=== PATIENT | male | born 1955 | race Caucasian/White ===

== ENCOUNTER 2020-07-11 11:10 | Outpatient (CLI) | payer BC, SELFPAY ==
--- NOTE | 2020-07-11 08:15 | DI.RAD_ITS ---
EXAM: XR FOOT RT COMPLETE CLINICAL HISTORY: rt foot pain TECHNIQUE: COMPARISON: No exams were available for comparison FINDINGS: Three views were obtained. Bones appear normally mineralized. Mild hallux valgus deformity noted wi th slight secondary degenerative changes at 1st MTP joint. Otherwise alignment appears within normal limits. Minimal enthesophyte formation of the plantar fascia attachment on the calcaneus. No other significant bony abnormality seen. IMPRESSION: RADIATION DOSE DELIVERED: Total DLP
--- NOTE | 2020-07-11 08:15 | DI.RAD_ITS ---
EXAM: XR HAND RT COMPLETE CLINICAL HISTORY: rt hand pain TECHNIQUE: COMPARISON: No exams were available for comparison FINDINGS: Three views were obtained. Bones appear normally mineralized. Cartilaginous joint spaces are fairly well maintained. Small marginal osteophyte noted at the base of the distal phalanx of the thumb. No other significant bony abnormality seen. IMPRESSION: Examination is essentially normal for age. RADIATION DOSE DELIVERED: Total DLP
== END 2020-07-11 11:30 ==
PROVIDERS: Visit Provider Physician Assistant Surgical
DX: M79.641 Pain in right hand (principal); M79.671 Pain in right foot
CPT/HCPCS: 73130; 73630

== ENCOUNTER 2022-08-22 16:10 | Outpatient (REF) | payer BC, MEDICARE, SELFPAY ==
[2022-08-22 20:43] LABS: ALT 36 U/L (16-63); AST 27 U/L (15-37); Albumin 3.9 g/dL (3.4-5.0); Alkaline Phosphatase 71 U/L (46-116); Anion Gap 5.1 mmol/L (3-11); BUN 19 mg/dL (7-18); Bilirubin, Total 0.6 mg/dL (0.2-1.0); CO2 28.9 mmol/L (21.0-32.0); CREATININE 1.1 mg/dL (0.70-1.30); Calcium 8.9 mg/dL (8.5-10.1); Calculated LDL 158 mg/dL (<100); Chloride 105 mmol/L (98-107); Cholesterol 244 mg/dL (<200); Estimated GFR 74.04 (mL/min/1.73m2); Glucose 85 mg/dL (74-106); HDL Cholesterol 70 mg/dL (40-60); Potassium 4.2 mmol/L (3.5-5.1); Sodium 139 mmol/L (136-145); Total Protein 6.9 g/dL (6.4-8.2); Triglyceride 81 mg/dL (<150)
[2022-08-23 19:11] LABS: PSA, Screening 1.2 ng/mL (<=4.5)
== END 2022-08-22 16:11 | disposition home or self-care (01) ==
LOC: NCHCN 16:10
PROVIDERS: Visit Provider Physician Assistant
DX: E78.5 Hyperlipidemia, unspecified (principal); Z12.5 Encounter for screening for malignant neoplasm of prostate
CPT/HCPCS: 80053; 80061; 84153

== ENCOUNTER → 2022-09-07 00:51 | Outpatient (CLI) | payer BC, MEDICARE, SELFPAY ==
--- NOTE | 2022-09-07 | DI.RAD_ITS ---
Exam(s) XR LUMBAR SPINE COMPLETE EXAM: XR LUMBAR SPINE COMPLETE CLINICAL HISTORY: LOW BACK PAIN, H/O DISECTOMY. TECHNIQUE: 2D digital imaging was performed. COMPARISON: No exams were available for comparison FINDINGS: Six views: There is no evidence of fracture or listhesis. However, there is advanced asymmetric disc space narr owing at each level in the lumbosacral spine, this resulting in mild degenerative scoliosis convex ri ght. Cannot exclude canal stenosis. Sacroiliac joints appear unremarkable. IMPRESSION: Multilevel advanced but asymmetric disc space narrowing. If clinically indicated follow-up lumbar sp ine MRI can be performed to determine the amount of central spinal canal and foraminal stenosis. DATA REPOSITORY: RADIATION DOSE DELIVERED:
== END ==
PROVIDERS: Visit Provider Physician Assistant
DX: M54.59 Other low back pain (principal); M47.817 Spondylosis without myelopathy or radiculopathy, lumbosacral region
CPT/HCPCS: 72110

== ENCOUNTER 2023-08-26 17:54 | Outpatient (REF) | payer BC, MEDICARE, SELFPAY ==
[2023-08-26 17:06] LABS: ALT 39 U/L (16-63); AST 30 U/L (15-37); Alkaline Phosphatase 70 U/L (46-116); Anion Gap 12.2 mmol/L (3-11); BUN 24 mg/dL (7-18); Bilirubin, Total 0.5 mg/dL (0.2-1.0); CO2 22.8 mmol/L (21.0-32.0); CREATININE 1.1 mg/dL (0.70-1.30); Calculated LDL 143 mg/dL (<100); Chloride 108 mmol/L (98-107); Cholesterol 221 mg/dL (<200); Estimated GFR 73.58 (mL/min/1.73m2); Glucose 93 mg/dL (74-106); HDL Cholesterol 68 mg/dL (40-60); Potassium 4.6 mmol/L (3.5-5.1); Sodium 143 mmol/L (136-145); Total Protein 6.8 g/dL (6.4-8.2); Triglyceride 52 mg/dL (<150)
[2023-08-26 22:25] LABS: PSA, Screening 0.9 ng/mL (<=4.5)
[2023-08-31 14:48] LABS: Testosterone, Total 432 ng/dL (240-950)
== END 2023-08-26 17:55 | disposition home or self-care (01) ==
LOC: NCHCN 17:54
PROVIDERS: PCP Physician Assistant; Visit Provider Physician Assistant
DX: R41.3 Other amnesia (principal); E78.5 Hyperlipidemia, unspecified; Z12.5 Encounter for screening for malignant neoplasm of prostate
CPT/HCPCS: 80053; 80061; 84153; 84403

== ENCOUNTER 2023-08-27 14:28 | Emergency (ER) | payer BC, MEDICARE, SELFPAY ==
[2023-08-27 14:39] VITALS: BP 165/95; PULSE 63; RESP 20; TEMP 37; O2SAT 99
--- NOTE | 2023-08-27 14:47 | ED.GENADUL_ITS ---
Discharge Plan Disposition Patient Disposition: Home Discharge Details Clinical Impression: Renal colic on left side Primary Care Provider: Danny Delvalle ED Provider: Migdalia Rich Home Meds and New Rx's Prescriptions: New tamsulosin [Flomax] 0.4 mg capsule 0.4 mg PO DAILY Qty: 10 0RF Rx Instructions: Take once a day as needed for continued kidney stone pain. May cause d izziness when standing. Get up slowly from lying or sitting position when taking this medication. No Action meloxicam 15 mg tablet 15 mg PO DAILY Qty: 90 1RF simvastatin 20 mg tablet 20 mg PO DAILY Patient Comments: TAKE ONE TABLET BY MOUTH EVERY DAY Discharge Instructions Instructions: Renal Colic (ED) Additional Instructions: 1. Take 1000 mg of acetaminophen and qixd-zhj-xqokusl ibuprofen OR meloxicam for pain not relieved by acetaminophen alone. For severe pain you may take oxycodone which we gave you here. This can cause drowsiness and constipation. You should not drink alcohol, drive, operate heavy machinery, or make important decisions while taking this medication. It can also be habit-forming. 2. You will be contacted by the urologist for a follow-up appointment. Return to the emergency department for any new or worrisome symptoms symptoms including fever, intractable pain, vomiting or any concerns. 3. Strain your urine and bring any stones with you to your follow-up appointment with urology. 4. Call me (Dr. Rich) at [phone] for the results of the urinalysis before midnight tonight. 5. I have called the prescription for Flomax to your pharmacy. If you are continuing to have pain fill this prescription to help pass the kidney stones. This can cause dizziness if you go from a lying or sitting position to standing so do so slowly if you fill the prescription. Discharge Data Discharge Date/Time-TO BE ENTERED AT DEPARTURE: 08/27/23 17:15 Discharge Physician: Migdalia Rich Medical Decision Making This is a 68-year-old male with a history of arthritis who presents with abdominal pain and now back pain which began at 9 AM this morning. He has a reassuring exam. There are no pulsatile masses or bruits on his abdominal exam. There is no pain radiating down his legs. He denies any numbness tingling or weakness. He tells me he has a family history of renal colic. His mother has a history of gout. The patient does not have any personal history of gout. He has not had any fevers or chills. He has not had any bowel or bladder symptoms other than mild nausea. He does have a history of hypercholesterolemia. He had labs done yesterday at his primary care provider's office. At that time he was advised not to take his meloxicam daily because of gastric and renal side effects. My plan is to obtain blood work and a urinalysis and a CT of the abdomen and pelvis with IV contrast to rule out abdominal aortic aneurysm or dissection. There is no evidence of a radiculopathy. He has no prior history of abdominal surgeries. He has not had any diarrhea or vomiting. He most likely has renal colic which should be evident on his CT with IV contrast. We will check his renal function and liver function. I will also write for Protonix since he did have abdominal pain and has been on nonsteroidals daily for a month. Differential Diagnosis Differential Diagnosis: Renal colic, UTI, musculoskeletal back pain, radiculopathy, Medical Records Medical records reviewed: Yes I reviewed the patient's medical records. Imaging Data Radiologic Study: Imaging: CT Scan (CTA abdomen and pelvis) HPI General Date/Time Provider Initiated Documentation: 08/27/23 14:47 . Limitations to Documentation: no limitations . Information obtained by: patient . History of Present Illness with intensity rated at 7. Quality is described as aching, HPI Narrative: Time seen was on arrival initially in triage. The patient is a relatively healthy 68-year-old male with a history of degenerative arthritis of the spine who has been on meloxicam for about a month for back pain. He was seen by his primary care provider yesterday a PA who advised him not to take it daily. He presents today with abdominal pain and left lower back pain. The patient has no history of renal colic though he does have a family history of kidney stones. The pain came on at approximately 9 AM this morning and reached maximum intensity fairly quickly. The pain is 5 out of 10 in severity and is now located more in the back and anteriorly. He denies any dysuria or radiation of the back pain down his legs or to the genitals. The pain is constant. He denies any trauma. He denies any previous abdominal surgeries. He denies any other aggravating or alleviating factors. He has not taken anything for the pain. He denied any chest pain or shortness of breath. He denies any fever. He did describe having a wave of feeling warm and nausea but has not had any vomiting, diarrhea or change in bowel or bladder habits. Related Data Home Medications Medication Instructions Recorded Confirmed meloxicam 15 mg tablet 15 mg PO DAILY #90 tabs 07/20/20 08/27/23 simvastatin 20 mg tablet 20 mg PO DAILY 08/27/23 08/27/23 tamsulosin 0.4 mg capsule (Flomax) 0.4 mg PO DAILY #10 caps 08/27/23 Previous Rx's Medication Instructions Recorded meloxicam 15 mg tablet 15 mg PO DAILY #90 tabs 07/20/20 tamsulosin 0.4 mg capsule (Flomax) 0.4 mg PO DAILY #10 caps 08/27/23 Allergies Allergy/AdvReac Type Severity Reaction Status Date / Time No Known Allergies Allergy Verified 08/27/23 14:39 General Stated Complaint: Abd Prob JAMIE: 3 Review of Systems Narrative: see hpi, the patient has a history of arthritis in his spine and has been on meloxicam for 30 days. He was told to discontinue it. 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 He was initially mildly hypertensive. He was not tachycardic tachypneic or febrile. Const General: cooperative, healthy appearing, comfortable, no acute distress, well developed, well groomed and well hydrated Nutritional Appearance: average body habitus and well nourished Orientation: alert, awake and oriented x3 HENMT Head: normal to inspection, normocephalic and atraumatic Ears: hearing grossly normal bilaterally and external ears normal General nose exam: external nose normal, nares normal and no nasal discharge Face and sinus: normal facial exam, sinuses nontender and face symmetric Mouth: oral mucosae normal, lip normal, tongue normal, oropharynx normal, moist mucous membranes and other (Normal phonation. The patient is handling secretions.) Throat: posterior oropharynx normal and uvula midline Eyes General: appearance normal, both eyes and all related structures Eyelids: eyelids normal Conjunctivae: conjunctivae normal Sclera: sclerae normal Cornea: corneas normal Pupils: PERRL EOM: EOM intact bilaterally and No nystagmus Neck Neck: normal visual inspection, full ROM, no lymphadenopathy, no meningeal signs, trachea midline and supple Lymphatic: no lymphadenopathy noted Chest Chest: normal inspection of the chest Resp Effort & Inspection: normal respiratory effort, able to speak in complete sentences, no audible wheezes, no nasal flaring, no respiratory distress, no retractions, no stridor, not tachypneic, no tracheal deviation, no use of accessory muscles, No prolonged expiratory phase and other (Normal inspiratory to expiratory ratio.) Auscultation: clear to auscultation bilaterally, no rales, no rhonchi, no wheezes and no rubs Tactile Fremitus: tactile fremitus absent Cardio Jugular venous pressure: no JVD Palpation: normal PMI Rate: regular rate Rhythm: regular rhythm Heart Sounds: S1 normal, S2 normal, no gallops, no murmurs and no rubs GI Inspection: normal to inspection and non-distended Palpation: soft, no hepatosplenomegaly, no guarding and nontender Percussion: normal to percussion Auscultation: normal bowel sounds Other: Mild left CVA tenderness. Back/Spine/Pelvis Cervical Spine: normal cervical lordosis, cervical ROM normal, No cervical muscular tenderness, No pain with cervical ROM, No cervical spinal tenderness and No step off deformity Thoracic/Lumbar Spine: thoracic and lumbar spine normal to inspection, No thoracic spinal tenderness and No lumbar spinal tenderness Pelvis: no pain with anterior-posterior compression and no pain with lateral compression Skin General skin exam: no rashes or lesions noted, turgor normal, no petechiae, no purpura and other (Skin is normal for ethnicity.) Lesions: no lesions Rashes: no rashes Trauma: no lacerations or abrasions Neuro General: patient alert, patient awake, patient oriented x3, moves all extremities, no meningeal signs, no focal motor deficits and CN's II-XI intact bilaterally Cranial Nerves: CN's II-XI intact bilaterally, PERRL, accommodation normal, EOM intact bilaterally, no nystagmus, facial strength normal, tongue midline, hearing normal and no nystagmus Cognition: normal cognition Speech: speech normal Gait: normal gait Motor: muscle tone normal throughout and strength 5/5 throughout Sensory Exam: no sensory deficits noted Extrem General: normal to inspection, full ROM, capillary refill normal, no clubbing, cyanosis or edema and no calf tenderness Psych Appearance: grossly normal Affect: normal affect Attitude: cooperative Thought Process: normal Thought Content: normal Insight: insight good Judgment: judgment good Other: The patient appears to have capacity make medical decisions. Course I have updated patient on his results and CT findings. We do not have a urinalysis back. But the patient wishes to be discharged. I have advised him that we need a urine to assess for an infection and he will call me with the results. Reevaluation(s) Time: 16:53 Reevaluation: Pain is improved. Down to 1. I will discharge the patient with oxycodone to take at home as needed. I advised him not to drink alcohol drive, operate heavy machinery or make important decisions while taking this medication Vital Signs Vital signs: Vital Signs Temperature 37.0 C 08/27/23 14:39 Pulse 63 08/27/23 14:39 Respiratory Rate 20 08/27/23 14:39 Blood Pressure 165/95 H 08/27/23 14:39 Pulse Oximetry 99 08/27/23 14:39 Temperature 37.0 C 08/27/23 14:39 Temperature Source Oral 08/27/23 14:39 Pulse 63 08/27/23 14:39 Respiratory Rate 20 08/27/23 14:39 Respiratory Effort Normal 08/27/23 14:41 Blood Pressure 165/95 H 08/27/23 14:39 Blood Pressure Position Sitting 08/27/23 14:39 Pulse Oximetry 99 08/27/23 14:39 Oxygen Delivery Method Room Air 08/27/23 14:39 Oxygen Flow Rate 0 08/27/23 14:39 Pain Level 5 08/27/23 14:39 Lab/Test Results Lab/Test Results: Normal white count, normal H&H, normal platelets, slight left shift, normal lactate, normal renal function, normal liver function, normal troponin, normal lipase, urine shows trace ketones moderate blood but no nitrite or leukocyte esterases. No crystals or bacteria
--- NOTE | 2023-08-27 14:52 | DI.CT_ITS ---
Exam(s) CT ABDOMEN PELVIS CTA EXAM: CT ABDOMEN PELVIS CTA CLINICAL HISTORY: Left-sided abdominal and back pain. TECHNIQUE: Imaging Protocol: Axial CT angiography was performed with multi-slice acquisition and m ulti-planar and/or 3D reconstructions. CONTRAST MATERIAL: Intravenous: Omnipaque 350 Contrast volume:100mL Oral: No COMPARISON: No exams were available for comparison FINDINGS: ABDOMEN AND PELVIS: Abdomen: Celiac axis/mesenteric arteries: No evidence of occlusion or significant stenosis. Renal Arteries: No evidence of occlusion or significant stenosis. Mild atherosclerosis. Aorta: No evidence of occlusion or significant stenosis. No aneurysm or dissection. Mild atheroscler osis. Pelvis: Iliac Arteries: No evidence of occlusion or significant stenosis. Mild atherosclerosis. Common Femoral Arteries: No evidence of occlusion or significant stenosis. ABDOMEN: Lung bases: Unremarkable. Liver: Normal density. There are 2 well-circumscribed tiny hypodensities present. They are too small for further characterization. These may represent small cysts. Hepatic ultrasound may be obtained for further evaluation. Portal, Superior Mesenteric, and Splenic Veins: Unremarkable. Gallbladder and Biliary Tract: Cholelithiasis. No biliary ductal dilatation. There is a stone seen within the neck of the gallbladder. Pancreas: Normal density, no abnormal calcifications or inflammatory process. Spleen: Normal. Adrenals: No masses seen. Kidneys: Normal size, contour and axis. There are 2 stones seen at the left UVJ causing rxrf-nh-hkzvh ate hydronephrosis. The larger measures 4 mm. The smaller 2 mm. No masses seen. Bowel: No obstruction or bowel wall thickening. Appendix is unremarkable. Peritoneal Cavity: No ascites, collection or mesenteric inflammatory response. No free air. Lymph Nodes: Within normal limits. Bones: Within normal limits for the patient's age. Soft Tissues: There is a fat containing right inguinal hernia. PELVIS: Bladder: Symmetric distention, no gross wall thickening. Reproductive Organs: Unremarkable as visualized. Lymph Nodes: Within normal limits. Bones: Within normal limits. IMPRESSION: 1. Left UVJ stones causing twow-gt-izzbpico hydronephrosis. 2. No evidence of abdominal aortic dissection or aneurysm. 3. Findings were discussed with the emergency department at 4:08 p.m. on 08/27/2023. RADIATION DOSE DELIVERED: Total DLP DATA REPOSITORY: All CT scans at this facility are submitted to the National Radiology Data Registry (NRDR) Dose Index Registry (DIR) with the [employer] ([employer]). RADIATION OPTIMIZATION: All CT scans at this facility use at least one of these dose optimization te chniques: automated exposure control; mA and/or kV adjustment per patient size (includes targeted exa ms where dose is matched to clinical indication); or iterative reconstruction.
[2023-08-27] MEDS: ACETAMINOPHEN 1,000 MG/100 ML BTL 400 MG IVPB (15:19)
[2023-08-27] MEDS: Pantoprazole 40 MG VIAL IVP (15:21)
[2023-08-27] MEDS: Normal Saline 1,000 ML 1000 ML IV (15:21)
[2023-08-27 15:29] LABS: Abs Immature Grans 0.03 10^3/uL (0.0-0.06); Absolute Basophil Count 0.04 10^3/uL (0.0-0.2); Absolute Eosinophil Count 0.16 10^3/uL (0.0-0.7); Absolute Lymphocyte Count 0.85 10^3/uL (1.2-3.4); Absolute Monocyte Count 0.48 10^3/uL (0.1-0.8); Absolute Neutrophil Count 8.94 10^3/uL (1.2-6.7); Basophils % 0.4; Eosinophils % 1.5; HCT 48.2 % (40.0-50.0); HGB 16.2 g/dL (13.5-17.5); Immature Grans % 0.3; Lactate 0.7 mmol/L (0.6-1.4); Lymphocytes % 8.1; MCH 30.7 pg (27.0-33.0); MCHC 33.6 % (32.0-36.0); MCV 91 fL (80-95); MPV 9.7 fL (8.0-11.0); Monocytes % 4.6; Neutrophils % 85.1; Platelet Count 204 10^3/uL (130-400); RBC 5.28 10^6/uL (4.36-5.78); RDW 13.2 % (11.8-14.1); RDW-SD 44.4 fL
[2023-08-27 15:41] LABS: Lipase 34 U/L (16-77)
[2023-08-27] MEDS: Normal Saline - Diluent 50 ML VIAL IJ (15:41)
[2023-08-27] MEDS: Omnipaque 350 MG/ML 100 ML BTL IJ (15:42)
[2023-08-27 15:59] LABS: ALT 43 U/L (16-63); AST 31 U/L (15-37); Albumin 4.1 g/dL (3.4-5.0); Alkaline Phosphatase 70 U/L (46-116); Anion Gap 10.1 mmol/L (3-11); BUN 22 mg/dL (7-18); Bilirubin, Total 0.9 mg/dL (0.2-1.0); CO2 25.9 mmol/L (21.0-32.0); CREATININE 1.3 mg/dL (0.70-1.30); Calcium 9.2 mg/dL (8.5-10.1); Chloride 105 mmol/L (98-107); Estimated GFR 60.21 (mL/min/1.73m2); Glucose 109 mg/dL (74-106); Magnesium 2.2 mg/dL (1.8-2.4); Sodium 141 mmol/L (136-145); Total Protein 7.4 g/dL (6.4-8.2); Troponin I < 50 ng/L (<or=60)
[2023-08-27 16:56] VITALS: BP 137/72; PULSE 58; RESP 20; O2SAT 97
[2023-08-27 17:03] LABS: Bilirubin Negative (Negative); Blood Moderate (Negative); Clarity Clear (Clear); Glucose Negative (Negative); Ketones Trace mg/dL (Negative); Leukocyte Esterase Negative (Negative); Nitrite Negative (Negative); Specific Gravity 1.015 (1.005-1.025); Urobilinogen 0.2 mg/dL (Up to 0.2); pH 5.5 (5-8)
--- NOTE | 2023-08-27 17:07 | NUR.NOTE ---
Referral Faxed to Urology for kidney stones within 2 weeks.
[2023-08-27 17:21] LABS: Bacteria Negative HPF (Negative); C & S Indicated? No; Crystals Negative HPF (Negative); Epithelial Cells Negative HPF (Negative); WBC Negative HPF (0-5)
[2023-08-27 18:11] LABS: Mucus Trace (Negative)
== END 2023-08-27 17:15 | disposition home or self-care (01) ==
PROVIDERS: Emergency Provider Emergency Medicine Emergency Medical Services; PCP Physician Assistant
DX: N23 Unspecified renal colic (principal)
CPT/HCPCS: 80053; 83690; 96361; 96374; 96375; 99285; 74174; 81003; 81015; 83605; 83735; 84484; 85025; 99284; J0131; J3490

== ENCOUNTER → 2023-09-30 02:14 | Outpatient (CLI) | payer BC, MEDICARE, SELFPAY ==
--- NOTE | 2023-09-30 | ETT_ITS ---
APPROVED REPORT Exam: Exercise Treadmill Patient Location: Out-Patient Room/Bed: Stress Nurse: Leia Samano RN Ordering Provider:SADIA GATES, Contact Number: [phone] BMI: 28.37 Baseline Rhythm: Sinus Rhythm Indications: MADRIGAL Medical History Medical History: MICHELLE Cardiac Medications: Simvasatin, Meloxicam Allergies: NKA Cardiac Risk Factors: Family Hx, HLD Previous Cardiac Procedures: Nuc Stress, cardiac cath Pretest Chest Pain Characteristics: None Exercise History: Indeterminate Physical Disabilities: None Lung Sounds: Clear to auscultation Heart Sounds: Regular Stress Test Details Test: Exercise stress testing was performed using a Terrence protocol. Rest Stress HR Resting HR Supine: 82 bpm Max Heart Rate (APMHR): 153 bpm Resting HR Standin bpm Target HR (85% APMHR): 130 bpm Max HR Achieved: 160 bpm % of APMHR: 105 Recovery HR: 89 bpm HR response to stress: Normal HR response to stress BP Resting BP Supine: 128/76 mmHg Resting BP Standin/72 mmHg Max BP: 164/70 mmHg Recovery BP: 138/72 mmHg BP response to stress: Normal blood pressure response to stress. ECG Resting ECG: Sinus Rhythm Ectopy: none Stress ECG: Sinus Tachycardia ST Change: No significant ST segment changes noted Arrhythmia: None Recovery ECG: Sinus Rhythm Recovery ST Change: No significant ST segment changes noted Recovery Arrhythmia: None Clinical Reason for Termination: Dyspnea Stress Symptoms: exertional dyspnea at 6:50 Exercise duration: 7 min04 sec Highest Stage Reached: Stage 3: 3.4 mph at 14% grade. Exercise capacity: 8.7 METs Functional Capacity: Average Capacity Angina Score: None Vergara Treadmill Score: 6 Rate Pressure Product: 30708 Stress ECG Conclusion 1. Resting electrocardiogram showed poor R wave progression 2. Patient exercised on the Terrence protocol and completed a workload of 8.7 METS 3. Normal heart rate and blood pressure response to exercise. The patient achieved greater than 100% of predicted heart rate for age 4. There was no electrocardiographic evidence of myocardial ischemia 5. There were no significant dysrhythmias Vergara Treadmill Score is 6 which is Low risk. Stress Test Summary STAGE Time (mins) Speed (mph) Grade (%) HR BP SpO2 SYMPTOMS METS Supine 82 128/76 98 Standing 96 120/72 98 1 3 1.7 10 112 130/80 96 4.5 2 6 2.5 12 133 150/70 96 7 1 min recovery 128 164/70 98 3 min recovery 95 154/72 98 6 min recovery 89 138/72 98
== END ==
PROVIDERS: PCP Physician Assistant; Visit Provider Physician Assistant
DX: R06.09 Other forms of dyspnea (principal)
CPT/HCPCS: 93016; 93017

== ENCOUNTER → 2023-10-01 09:06 | Outpatient (BNVA) | payer BC, MEDICARE, SELFPAY | PROVIDERS: PCP Physician Assistant; Referring Provider Physician Assistant; Visit Provider Nurse Practitioner Gerontology | CPT/HCPCS: 99213 ==

== ENCOUNTER → 2023-10-15 00:44 | Outpatient (CLI) | payer BC, MEDICARE, SELFPAY ==
--- NOTE | 2023-10-15 08:00 | DI.US_ITS ---
Exam(s) US RENAL EXAM: US RENAL CLINICAL HISTORY: monitoring clearing of hydroNEPHROSIS,RENAL CALCULI,N13.30,N20.0. TECHNIQUE: Meadows scale, color and spectral Doppler were used. COMPARISON: CT CT ABDOMEN PELVIS CTA from 08/27/2023 FINDINGS: Renal size in cm: Right: 11. Left: 12.5. Echogenicity: Normal. Hydronephrosis: There is mild left hydronephrosis. Cyst or mass: There is a right renal parapelvic cyst. Nephrolithiasis: No. Other findings: None. Bladder:Normal. Ureteral jets: Right: Visualized and unremarkable. Left: Visualized and unremarkable. Prevoid vol:309 cc Postvoid vol:197 cc Prostate: 18 cc Renal color flow: Symmetric and within normal limits. IMPRESSION: Mild left hydronephrosis. DATA REPOSITORY:
== END ==
PROVIDERS: PCP Physician Assistant; Visit Provider Nurse Practitioner Gerontology
DX: N13.39 Other hydronephrosis (principal)
CPT/HCPCS: 76770

== ENCOUNTER → 2023-11-05 14:20 | Outpatient (BNVA) | payer BC, MEDICARE, SELFPAY | PROVIDERS: PCP Physician Assistant; Referring Provider Physician Assistant; Visit Provider Nurse Practitioner Gerontology | CPT/HCPCS: 99442 ==

== ENCOUNTER → 2023-11-15 20:43 | Outpatient (CLI) | payer BC, MEDICARE, SELFPAY ==
--- NOTE | 2023-11-15 15:36 | DI.RAD_ITS ---
Exam(s) XR CHEST 2V PA LATERAL EXAM: XR CHEST 2V PA LATERAL CLINICAL HISTORY: COUGH, R05.9 TECHNIQUE: 2D digital imaging was performed. COMPARISON: No exams were available for comparison FINDINGS: HEART: Normal size. Aorta: Not dilated. PULMONARY VASCULATURE: Normal. LUNGS: Clear. PLEURAL SPACE: No pleural effusion or pneumothorax. BONE:Unremarkable for age. Soft tissues: Unremarkable. IMPRESSION: No acute abnormality. DATA REPOSITORY: RADIATION DOSE DELIVERED:
== END ==
PROVIDERS: PCP Physician Assistant; Visit Provider Physician Assistant Medical
DX: R05.9 Cough, unspecified (principal)
CPT/HCPCS: 71046

== ENCOUNTER → 2024-08-06 15:28 | Outpatient (BNVA) | payer BC, MEDICARE, SELFPAY | PROVIDERS: PCP Physician Assistant; Referring Provider Physician Assistant; Visit Provider Nurse Practitioner Gerontology | DX: N20.0 Calculus of kidney (principal); N13.30 Unspecified hydronephrosis; R33.8 Other retention of urine | CPT/HCPCS: 51798; 81003; 99213 ==

== ENCOUNTER 2024-09-03 11:27 | Outpatient (REF) | payer BC, MEDICARE, SELFPAY ==
[2024-09-03 15:46] LABS: ALT 35 U/L (16-63); AST 28 U/L (15-37); Albumin 3.7 g/dL (3.4-5.0); Alkaline Phosphatase 72 U/L (46-116); Anion Gap 10.6 mmol/L (3-11); BUN 25 mg/dL (7-18); Bilirubin, Total 0.67 mg/dL (0.2-1.0); CO2 25.4 mmol/L (21.0-32.0); Calcium 9.1 mg/dL (8.5-10.1); Calculated LDL 91 mg/dL (<100); Chloride 110 mmol/L (98-107); Cholesterol 176 mg/dL (<200); Estimated GFR 81.98 (mL/min/1.73m2); Glucose 79 mg/dL (74-106); HDL Cholesterol 78 mg/dL (40-60); Potassium 4.4 mmol/L (3.5-5.1); Sodium 146 mmol/L (136-145); Total Protein 6.6 g/dL (6.4-8.2); Triglyceride 37 mg/dL (<150)
[2024-09-03 22:17] LABS: PSA, Screening 0.7 ng/mL (<=4.5)
== END 2024-09-03 11:28 | disposition home or self-care (01) ==
LOC: NCHCN 11:27
PROVIDERS: PCP Physician Assistant; Visit Provider Physician Assistant
DX: E78.5 Hyperlipidemia, unspecified (principal); Z12.5 Encounter for screening for malignant neoplasm of prostate
CPT/HCPCS: 80053; 80061; 84153

== ENCOUNTER 2024-09-15 01:51 | Outpatient (CLI) | payer BC, MEDICARE, SELFPAY ==
--- NOTE | 2024-09-15 10:13 | DI.RAD_ITS ---
Exam(s) XR CERVICAL SPINE COMP 4-5V EXAM: XR CERVICAL SPINE COMP 4-5V CLINICAL HISTORY: Cervicalgia, M52.2, chronic neck pain. TECHNIQUE: 2D digital imaging was performed. Five views were performed. COMPARISON: No exams were available for comparison FINDINGS: BONES: No fracture or destructive lesion. Vertebral bodies are unremarkable. Small endplate osteoph ytes. Facet degenerative changes. Neural foraminal narrowing on the left at C4-5. Neural foraminal narrowing on the on the right at C3-4 through C5-6. DISKS: Severe narrowing of the C5-6 disc space. Mild disc space narrowing noted at C3-4 and C4-5. ALIGNMENT: Cervical spinal alignment is within normal limits. The odontoid and atlantoaxial articulat ions are normal. SOFT TISSUE: Normal. The lung apices are clear. IMPRESSION: Degenerative changes and facet degenerative changes causing bilateral neural foraminal narrowing. DATA REPOSITORY: RADIATION DOSE DELIVERED:
== END 2024-09-15 02:11 ==
LOC: DI 01:51
PROVIDERS: PCP Physician Assistant; Visit Provider Physician Assistant
DX: M48.02 Spinal stenosis, cervical region (principal)
CPT/HCPCS: 72050

== ENCOUNTER 2025-04-29 14:16 | Outpatient (REF) | payer BC, MEDICARE, SELFPAY ==
[2025-04-29 15:44] LABS: ALT 36 U/L (16-63); AST 25 U/L (15-37); Alkaline Phosphatase 76 U/L (46-116); Anion Gap 9.2 mmol/L (3-11); Bilirubin, Total 0.9 mg/dL (0.2-1.0); CO2 26.8 mmol/L (21.0-32.0); Calcium 8.8 mg/dL (8.5-10.1); Chloride 107 mmol/L (98-107); Cholesterol 182 mg/dL (<200); Estimated GFR 81.47 (mL/min/1.73m2); Glucose 87 mg/dL (74-106); Potassium 4.5 mmol/L (3.5-5.1); Sodium 143 mmol/L (136-145); Total Protein 6.5 g/dL (6.4-8.2); Triglyceride 46 mg/dL (<150)
[2025-04-29 16:08] LABS: Albumin 3.9 g/dL (3.4-5.0); BUN 19 mg/dL (7-18); Calculated LDL 103 mg/dL (<100); HDL Cholesterol 70 mg/dL (>or=40)
[2025-04-29 22:13] LABS: PSA, Screening 1.1 ng/mL (<=4.5)
== END 2025-04-29 14:17 | disposition home or self-care (01) ==
LOC: NCHCN 14:16
PROVIDERS: PCP Physician Assistant; Visit Provider Physician Assistant
DX: E78.5 Hyperlipidemia, unspecified (principal); Z12.5 Encounter for screening for malignant neoplasm of prostate
CPT/HCPCS: 80053; 80061; 84153

== ENCOUNTER 2025-08-25 10:06 | Outpatient (REF) | payer BC, MEDICARE, SELFPAY ==
[2025-08-25 15:31] LABS: HCT 47.4 % (40.0-50.0); HGB 15.7 g/dL (13.5-17.5); MCH 30.4 pg (27.0-33.0); MCHC 33.1 % (32.0-36.0); MCV 92 fL (80-95); MPV 10.3 fL (8.0-11.0); Platelet Count 222 10^3/uL (130-400); RBC 5.16 10^6/uL (4.36-5.78); RDW 13.3 % (11.8-14.1); RDW-SD 45.4 fL; WBC 6.08 10^3/uL (4.4-10.8)
[2025-08-25 15:37] LABS: ESR 3 mm/hr (0-20)
[2025-08-25 15:46] LABS: C-Reactive Protein < 0.50 mg/dL (<or=0.5)
[2025-08-27 09:06] LABS: Lyme Ab w Rflx to Lyme Confirm Negative (Negative)
== END 2025-08-25 10:07 | disposition home or self-care (01) ==
LOC: NCHCN 10:06
PROVIDERS: PCP Physician Assistant; Visit Provider Physician Assistant
DX: M79.18 Myalgia, other site (principal)
CPT/HCPCS: 85027; 85652; 86200; 86038; 86140; 86431; 86618